=== PATIENT | female | born 1950 | race Caucasian/White ===

== ENCOUNTER 2016-11-06 06:36 | Day surgery (SDC) | payer MEDICARE, BC ==
[2016-11-06] MEDS ORDERED: Midazolam 1 MG/ML 2 ML SDV ONE (07:20)
[2016-11-06] MEDS ORDERED: fentaNYL 100 MCG/2 ML SDV ONE (07:20)
[2016-11-06] MEDS ORDERED: Propofol 200 MG/20 ML SDV ONE (07:20)
[2016-11-06] MEDS ORDERED: Sodium Chloride 0.9% 1,000 ML IV SCH (07:45)
[2016-11-06 09:04] VITALS: BP 122/72
--- NOTE | 2016-11-06 11:55 | PROC ---
DATE OF PROCEDURE: 11/06/2016 INDICATIONS: Ngozi is a 66-year-old female, who comes in for an evaluation colonoscopy for screening for possible colon cancer. The risks and benefits were explained. PROCEDURE IN DETAIL: The patient was taken to the OR. Anesthesia was given by nurse car customizer. During the procedure, used 100 mcg of fentanyl, 2 mg of Versed, and 200 mg of propofol. With a gloved finger, the rectum was examined and the tube was placed into the rectum and advanced under direct vision. We did get to the mid ascending and had used external pressure to get into the cecum which was obtained. Upon retraction of the tube, noted no lesions, ulceration, no abnormalities throughout the entire colon. The tube was removed. The patient tolerated the procedure well. Preoperative: Screening colonoscopy. Postoperative: Normal colon from cecum to rectum. Normal screening should be done for this lady. Richard Amador MD /[id number]
== END 2016-11-06 09:25 | disposition home or self-care (01) ==
LOC: JP.SDS 06:36
PROVIDERS: ATTEND Internal Medicine
DX: Z12.11 Encounter for screening for malignant neoplasm of colon (principal); I10 Essential (primary) hypertension; E78.5 Hyperlipidemia, unspecified; E03.9 Hypothyroidism, unspecified
CPT/HCPCS: G0121; J2250; J2704; J3010; J7040

== ENCOUNTER 2021-08-24 15:31 | Emergency (ER) | payer MEDICARE ==
[2021-08-24 15:52] VITALS: BP 154/70; PULSE 73
[2021-08-24] MEDS ORDERED: Sodium Chloride 0.9% 10 ML Syringe FLUSH PRN (16:33)
[2021-08-24] MEDS ORDERED: Lactated Ringers 1,000 ML IV ONE (16:34)
[2021-08-24] MEDS ORDERED: Ondansetron 4 MG/2 ML SDV IVPUSH ONE (16:34)
[2021-08-24] MEDS ORDERED: Acetaminophen 1,000 MG in Premix Bag 1 BAG IV ONE (16:48)
== END 2021-08-24 18:47 | disposition home or self-care (01) ==
LOC: JP.ED 15:31
DX: N13.2 Hydronephrosis with renal and ureteral calculous obstruction (principal); E87.6 Hypokalemia; I12.9 Hypertensive chronic kidney disease with stage 1 through stage 4 chronic kidney disease, or unspecified chronic kidney disease; N18.30 Chronic kidney disease, stage 3 unspecified; E66.9 Obesity, unspecified; Z68.41 Body mass index [BMI] 40.0-44.9, adult; Z79.899 Other long term (current) drug therapy
CPT/HCPCS: 36415; 74176; 80048; 81001; 85025; 87086; 96365; 96375; 99282; 99284-25; J0131; J2405; J7120

== ENCOUNTER 2023-02-12 07:12 | Day surgery (SDC) | payer MEDICARE ==
[2023-02-12] MEDS ORDERED: Sodium Chloride 0.9% 10 ML Syringe FLUSH ONE (07:35)
[2023-02-12 08:40] VITALS: BP 134/58; PULSE 64
== END 2023-02-12 09:00 | disposition home or self-care (01) ==
LOC: JP.SDS 07:12
PROVIDERS: ATTEND Ophthalmology
DX: H26.9 Unspecified cataract (principal); I10 Essential (primary) hypertension; E03.9 Hypothyroidism, unspecified
CPT/HCPCS: V2632

== ENCOUNTER → 2023-02-26 | Day surgery (SDC) | payer MEDICARE ==
[~2023-02-26] MED LIST: Sodium Chloride 0.9% 10 ML Syringe FLUSH PRN
[2023-02-26 07:49] VITALS: BP 126/65; PULSE 76
== END ==
LOC: JP.SDS 05:34
PROVIDERS: ATTEND Ophthalmology
DX: H26.9 Unspecified cataract (principal); I10 Essential (primary) hypertension; E78.5 Hyperlipidemia, unspecified; E03.9 Hypothyroidism, unspecified; E66.9 Obesity, unspecified; Z68.37 Body mass index [BMI] 37.0-37.9, adult
CPT/HCPCS: 66984; J3490; V2632